=== PATIENT | female | born 1975 | race Caucasian/White ===

== ENCOUNTER 2019-04-26 22:40 | Outpatient (REF) | payer OTHER, SELFPAY ==
[2019-04-26 23:08] LABS: Anion Gap 12.6 mmol/L (3-11); BUN 12 mg/dL (7-18); CO2 26.4 mmol/L (21.0-32.0); CREATININE 0.68 mg/dL (0.55-1.02); Calcium 9.3 mg/dL (8.5-10.1); Chloride 104 mmol/L (98-107); Ferritin 69 ng/mL (8-388); Glucose 86 mg/dL (70-100); Magnesium 2.1 mg/dL (1.8-2.4); Potassium 4.4 mmol/L (3.5-5.1); Sodium 143 mmol/L (136-145); TSH (W/Ref FT4) 0.37 uIU/mL (0.36-3.74)
[2019-04-26 23:31] LABS: Creatine Kinase 69 U/L (26-192)
[2019-04-27 05:00] LABS: Vitamin D 25 Total 13.4 ng/ml (30-100)
[2019-04-28 11:52] LABS: Vitamin B12 425 pg/mL (193-986)
== END 2019-04-26 23:00 ==
LOC: NCHCN 22:40
PROVIDERS: PCP Family Medicine; Visit Provider Physician Assistant Medical
DX: R20.0 Anesthesia of skin (principal); E55.9 Vitamin D deficiency, unspecified; R20.2 Paresthesia of skin
CPT/HCPCS: 80048; 82306; 82550; 82607; 82728; 83735; 84443

== ENCOUNTER 2019-05-08 10:45 | Outpatient (CLI) | payer OTHER, SELFPAY ==
--- NOTE | 2019-05-08 15:19 | DI.RAD_ITS ---
EXAM: XR LUMBAR SPINE COMPLETE INDICATION: PARESTHESIA R20.2. COMPARISON: No exams were available for comparison TECHNIQUE: 2D digital imaging was performed. FINDINGS: There are 5 lumbar type vertebral bodies. There is normal alignment. There is no evidence of spondy lolysis or spondylolisthesis. The vertebral bodies, disc spaces, and posterior elements are all well maintained. No acute fracture or subluxation is present. IMPRESSION: No acute abnormality.
== END 2019-05-08 11:05 ==
PROVIDERS: PCP Family Medicine; Visit Provider Physician Assistant Medical
DX: R20.2 Paresthesia of skin (principal)
CPT/HCPCS: 72110

== ENCOUNTER 2019-10-08 09:30 | Emergency (ER) | payer OTHER, SELFPAY ==
[2019-10-08 09:41] VITALS: BP 129/88; PULSE 82; TEMP 36.8; O2SAT 98
[2019-10-08 09:55] LABS: Bilirubin Negative (Negative); Blood Moderate (Negative); Clarity Clear (Clear); Glucose Negative (Negative); Ketones Negative (Negative); Leukocyte Esterase Negative (Negative); Nitrite Negative (Negative); Urobilinogen 0.2 EU/dL (Up TO 0.2); pH 5.5 (5-8)
[2019-10-08 09:59] LABS: Bacteria Negative HPF (Negative); C & S Indicated? No; Casts Negative LPF (Negative); Crystals Negative HPF (Negative); Epithelial Cells Many HPF (Negative); Mucus Negative (Negative); WBC 0-2 HPF (0-5)
--- NOTE | 2019-10-08 10:00 | DI.CT_ITS ---
EXAM: CT ABDOMEN AND PELVIS W CLINICAL HISTORY: RLQ - MIDLINE PAIN. ? CALCULUS VS APPENDICITIS. TECHNIQUE: Post IV contrast. Without oral contrast. COMPARISON: No exams were available for comparison FINDINGS: The heart size is normal. The lung bases are clear. The liver shows multiple low-density lesions cons istent with cysts. The spleen, pancreas, kidneys, adrenals and gallbladder are unremarkable. There is no bowel dilatation or inflammatory change. Appendix is not identified. No right lower quadrant infl ammatory changes are seen. The colon is unremarkable. The bladder, uterus and ovaries are within norm al limits. The aorta is normal in diameter. No significant bony abnormalities are seen. IMPRESSION: No acute abnormality.
--- NOTE | 2019-10-08 10:01 | ED.GENADUL_ITS ---
Discharge Plan Disposition Patient Disposition: HOME Condition: Improving Discharge Details Chief Complaint: FlankPain Clinical Impression: Loin pain hematuria syndrome Primary Care Provider: Erica Torres V ED Provider: Vasyl John Home Meds and New Rx's Prescriptions: New hydrocodone-acetaminophen [Waldron] 5-325 mg tablet 1 tab PO BID PRN (Reason: pain) Qty: 4 RF: 0 Continued multivitamin Capsule 1 cap PO DAILY RF: 0 acetaminophen [Tylenol Extra Strength] 500 mg tablet 500 mg PO Q6H PRN PRNRF: 0 pregabalin [Lyrica] 50 mg Capsule 50 mg PO QHS RF: 0 Chantix 1 mg Tablet 1 mg PO BID RF: 0 Discharge Instructions Instructions: Hematuria (ED) Additional Instructions: May use ibuprofen 600 mg every 6-8 hours as needed for pain. This medication is best tolerated when taken with food. May use the provided Waldron for severe/breakthrough pain. Do not take additional Tylenol when taking this medication. We will ask care management to arrange a follow-up for you in urology clinic. The office number is [phone]. Return if you develop a fever, vomiting, abdominal bloating, inability to defecate, or any other acute concerns. Medical Decision Making 44-year-old female presents with 2-1/2 days of initially colicky, now constant right lower quadrant pain that radiates to her back. She was seen in primary care clinic and states that hematuria was noted at that time and after abdominal exam her discomfort seemed to worsen over the next day. She has not had a fever. She is tender in the right lower quadrant on exam. Differential diagnosis includes renal colic, appendicitis, colitis, cystitis. IV access established, patient given analgesia, fluid bolus, referred for laboratory testing, urinalysis, CT imaging enhanced with IV contrast given the aforementioned differential diagnosis considerations. The CT scan is read by negative per on-call radiologist, Dr. Oskar Harmon. I do question of mild right-sided ureteral dilatation and given the hematuria and location of the pain, I do feel this is likely renal colic. I will ask care management to arrange an outpatient follow-up in urology clinic. We will have the patient strain her urine. She will be given a small number of narcotic analgesics for breakthrough pain. I discussed with her that the CT scan was inconclusive. The patient and her understand return precautions for reevaluation. She is stable and improving. HPI General Mode of arrival: ambulatory . Date/Time Provider Initiated Documentation: 10/08/19 09:37 . Limitations to Documentation: no limitations . Information obtained by: patient . History of Present Illness 44 year old F presents to the emergency department with the chief complaint of Right lower quadrant pain, initially colicky, now constant, described as moderate, Quality is described as dull and constant, and is localized to the abdomen and right. Patient reports radiation to back. Patient started experiencing this hour(s) and it has been constant. No relieving factors improve symptom(s), Patient notes denies chest pain, fever/chills and nausea/vomiting. Patient did receive the following treatments prior to arrival, none Related Data Home Medications Medication Instructions Recorded Confirmed acetaminophen 500 mg tablet 500 mg PO Q6H PRN PRN tab 05/11/19 10/08/19 multivitamin 1 cap PO DAILY 05/11/19 10/08/19 Chantix 1 mg PO BID 10/08/19 10/08/19 hydrocodone-acetaminophen [Waldron] 1 tab PO BID PRN #4 tab 10/08/19 pregabalin [Lyrica] 50 mg PO QHS 10/08/19 10/08/19 Previous Rx's Medication Instructions Recorded hydrocodone-acetaminophen [Waldron] 1 tab PO BID PRN #4 tab 10/08/19 Allergies Allergy/AdvReac Type Severity Reaction Status Date / Time No Known Allergies Allergy Unverified 10/08/19 09:45 General Stated Complaint: FlankPain KELSI: 3 Review of Systems Narrative: No fever. States that she noticed the pain after being seen at primary care physician's office on . She states they noted hematuria at that time. No fever, vomiting, change to stool. 8 systems reviewed and otherwise negative [facility] Medical History Abnormal Pap smear of cervix (Acute) Back pain (Acute) Dental caries (Acute) Dental infection (Acute) Dyshidrotic eczema (Acute) Family history of colon cancer (Acute) Insomnia (Acute) Knee pain (Acute) Shoulder pain (Acute) Smoker (Acute) Vitamin D deficiency (Acute) Family History Mother Diabetes Thyroid disease Sister Seronegative rheumatoid arthritis Sister Seropositive rheumatoid arthritis Brother Colon cancer Niece Thyroid disease Social History Smoking/Tobacco Use Status: Current every day Tobacco Type: cigarettes Alcohol Intake: never Drug use: Never Substance use type: does not use Household members: spouse Housing: house Number of Children: 3 current occupation: [employer] What is your relationship status?: Panel score (0-1 are the most socially isolated patients): 1 Seatbelt use: always Do you feel safe at home: Yes Do you feel safe in your relationship?: Yes Exam Narrative Exam Narrative: GEN: awake, alert, oriented 3. Pleasant, well groomed, interactive. HEAD: Normocephalic, atraumatic ENT: Mucous membranes moist, oropharynx unremarkable, External ear exam unremarkable EYES: PERRL, EOMI NECK: Full ROM, no SHAKIR, no menigismus CHEST/RESP: Nontender, clear to auscultation bilateral, no wheeze/rhonchi/rales CARDIOVASCULAR: RRR, no murmur, rub roxann. 2+ Rad pulse bilateral ABDOMEN: Soft, tender in right lower quadrant and suprapubic regions, no mass. +Bowel sounds EXT: Full ROM, no edema, no rash Neuro: Grossly normal neurologic exam, conversant, interactive. Psych: Speech fluent, thoughts congruent, affect normal Course Vital Signs Vital signs: Vital Signs Temperature 36.8 C 10/08/19 09:41 Pulse 82 10/08/19 09:41 Blood Pressure 129/88 10/08/19 09:41 Pulse Oximetry 98 10/08/19 09:41 Temperature 36.8 C 10/08/19 09:41 Temperature Source Temporal Artery Scan 10/08/19 09:41 Pulse 82 10/08/19 09:41 Respiratory Effort Non-Labored 10/08/19 09:43 Blood Pressure 129/88 10/08/19 09:41 Blood Pressure Position Standing 10/08/19 09:41 Pulse Oximetry 98 10/08/19 09:41 Oxygen Delivery Method Room Air 10/08/19 09:41 Oxygen Flow Rate 0 10/08/19 09:41 Pain Level 8 10/08/19 09:43 Lab/Test Results Lab/Test Results: Laboratory Tests Range/Units 10/08/19 09:50 Urine Color (Yellow) Yellow Urine Clarity (Clear) Clear Urine pH (5-8) 5.5 Ur Specific [place] (1.005-1.025) 1.020 Urine Protein (Negative) mg/dL Negative Urine Ketones (Negative) mg/dL Negative Urine Blood (Negative) Moderate H Urine Nitrite (Negative) Negative Urine Bilirubin (Negative) Negative Urine Urobilinogen (Up TO 0.2) EU/dL 0.2 Ur Leukocyte Esterase (Negative) Negative Urine RBC (0-2) HPF 10-20 H Urine WBC (0-5) HPF 0-2 Ur Epithelial Cells (Negative) HPF Many Urine Crystals (Negative) HPF Negative Urine Bacteria (Negative) HPF Negative Urine Casts (Negative) LPF Negative Urine Mucus (Negative) Negative Ur Culture Indicated? No Urine Glucose (Negative) mg/dL Negative
[2019-10-08 10:08] LABS: Abs Immature Grans 0.01 k/cumm (0.0-0.09); Absolute Basophil Count 0.02 k/cumm (0.0-0.2); Absolute Eosinophil Count 0.11 k/cumm (0.0-0.7); Absolute Lymphocyte Count 2.56 k/cumm (1.2-3.4); Absolute Monocyte Count 0.64 k/cumm (0.11-0.7); Absolute Neutrophil Count 6.94 k/cumm (1.2-6.7); Basophils % 0.2; Eosinophils % 1.1; HCT 39.9 % (36.0-46.0); HGB 14.4 g/dL (12.0-15.5); Immature Grans % 0.1 %; Lymphocytes % 24.9; Mean Corp. HGB Concentration 36.1 g/dL (32.0-36.0); Mean Corpuscular Hemoglobin 31.7 pg (27.0-33.0); Mean Corpuscular Volume 87.9 fL (80-95); Mean Platelet Volume 8.9 fL (8.0-11.0); Monocytes % 6.2; Neutrophils % 67.5; Platelet Count 376 x1000/uL (130-400); RBC 4.54 m/cumm (4.00-5.20); RBC Distribution Width 11.7 % (11.7-14.6); White Blood Cell Count 10.28 k/cumm (4.4-10.8)
[2019-10-08] MEDS: Ketorolac 30 MG/ML VIAL IVP (10:10)
[2019-10-08] MEDS: Normal Saline 1,000 ML 1000 ML IV (10:10)
[2019-10-08] MEDS: Normal Saline Flush 10 ML SYR IVP (10:11)
[2019-10-08 10:26] LABS: ALT 22 U/L (14-59); AST 10 U/L (15-37); Albumin 4.2 g/dL (3.4-5.0); Alkaline Phosphatase 43 U/L (46-116); Anion Gap 10.9 mmol/L (3-11); BUN 10 mg/dL (7-18); Bilirubin, Total 0.7 mg/dL (0.2-1.0); CO2 24.1 mmol/L (21.0-32.0); CREATININE 0.67 mg/dL (0.55-1.02); Calcium 8.5 mg/dL (8.5-10.1); Chloride 104 mmol/L (98-107); Glucose 93 mg/dL (74-106); Potassium 3.3 mmol/L (3.5-5.1); Sodium 139 mmol/L (136-145); Total Protein 7.1 g/dL (6.4-8.2)
[2019-10-08] MEDS: HYDROmorphone 2 MG/ML VIAL 0.5 MG IVP ×2 (10:58→12:22)
[2019-10-08] MEDS: Omnipaque 350 MG/ML 100 ML BTL IJ (11:23)
--- NOTE | 2019-10-08 12:35 | DI.VRAD_ITS ---
PROCEDURE INFORMATION: Exam: CT Abdomen And Pelvis With Contrast Exam date and time: 10/08/2019 11:16 AM Age: 44 years old Clinical indication: Abdominal pain; Patient HX: Rlq -midline pain, ? calculi vs. Appendicitis. Pain worse when bending /sitting TECHNIQUE: Imaging protocol: Computed tomography of the abdomen and pelvis with intravenous contrast. COMPARISON: No relevant prior studies available. FINDINGS: Liver: Multiple small low-attenuation lesions in the liver. Largest 1 is consistent with cyst. Some are too small to characterize. Gallbladder and bile ducts: Normal. No calcified stones. No ductal dilation. Pancreas: Normal. No ductal dilation. Spleen: Normal. No splenomegaly. Adrenals: Normal. No mass. Kidneys and ureters: Normal. No hydronephrosis. No renal calculus. No ureteral calculus Stomach and bowel: Unremarkable. No obstruction. No mucosal thickening. Appendix: No evidence of appendicitis. Intraperitoneal space: Unremarkable. No free air. No significant fluid collection. Vasculature: Unremarkable. No abdominal aortic aneurysm. Lymph nodes: Unremarkable. No enlarged lymph nodes. Bladder: Unremarkable as visualized. Reproductive: Unremarkable as visualized. Bones/joints: Unremarkable. No acute fracture. Soft tissues: Unremarkable. IMPRESSION: No acute process Dictated and Authenticated by: Oskar Harmon MD. Ordering:CAM Fallon MD
--- NOTE | 2019-10-08 13:00 | NUR.NOTE ---
[facility]erral [facility], Dr. Cummings.Nursing Note:
== END 2019-10-08 13:11 | disposition home or self-care (01) ==
PROVIDERS: Emergency Provider Emergency Medicine; PCP Family Medicine
DX: R10.31 Right lower quadrant pain (principal); N39.8 Other specified disorders of urinary system
CPT/HCPCS: 36415; 80053; 81025; 96361; 96374; 96375; 96376; 99285; 74177; 81003; 81015; 85025; 99284; J1885; J3490

== ENCOUNTER 2019-10-10 02:10 | Outpatient (CLI) | payer OTHER, SELFPAY ==
--- NOTE | 2019-10-10 | DI.US_ITS ---
EXAM: US RENAL PELVIC TRANSVAGINAL CLINICAL HISTORY: HEMATURIA, R31.9, ABD PAIN, R10.9, URINARY FREQUENCY, R35.0 TECHNIQUE: Ultrasound performed using standard protocol. COMPARISON: CT ABDOMEN PELVIS W from 10/08/2019 FINDINGS: Pelvic ultrasound: Trans abdominal and transvaginal exams were performed. A small fibroid measurin g 1 cm in diameter is noted in the mid uterus. It may be submucosal or be in the adjacent myometrium . There are a few sub endometrial cysts. The uterus measures 9.1 by 3.6 by 5.3 cm. The endometrial stripe measures 9 millimeters in thickness. The ovaries are normal in size and appearance. No cyst s or masses are visible. There is no free fluid. Renal ultrasound: The prevoid bladder volume measures 457 cc. Both ureteral jets were identified. There is a postvoid residual of 27 cc. No bladder mass, wall thickening or calculi are seen. The ri ght kidney measures 11.0 cm in length. The left measures 11.3 cm in length. There is a question of minimal right hydronephrosis which persisted postvoid. IMPRESSION: 1. Question of mild right hydronephrosis. 2. 1 cm. myometrial versus submucosal fibroid. DATA REPOSITORY:
== END 2019-10-10 02:30 ==
PROVIDERS: PCP Family Medicine; Visit Provider Physician Assistant Medical
DX: R31.9 Hematuria, unspecified (principal); R10.9 Unspecified abdominal pain; R35.0 Frequency of micturition; D25.9 Leiomyoma of uterus, unspecified; N13.30 Unspecified hydronephrosis
CPT/HCPCS: 76770; 76830; 76856

== ENCOUNTER 2019-11-29 14:31 | Outpatient (REF) | payer OTHER, SELFPAY ==
[2019-11-29 21:09] LABS: Bacteria Negative HPF (Negative); Crystals Negative HPF (Negative); Epithelial Cells Moderate HPF (Negative); RBC Negative HPF (0-2); WBC 0-2 HPF (0-5)
[2019-11-29 21:10] LABS: C & S Indicated? No; Mucus Trace (Negative)
== END 2019-11-29 14:51 ==
LOC: NCHCN 14:31
PROVIDERS: PCP Family Medicine; Visit Provider Nurse Practitioner Family
DX: R10.9 Unspecified abdominal pain (principal)
CPT/HCPCS: 81015

== ENCOUNTER 2019-12-01 03:24 | Outpatient (CLI) | payer OTHER, SELFPAY ==
--- NOTE | 2019-12-01 | DI.US_ITS ---
EXAM: US RENAL CLINICAL HISTORY: RLQ AND FLANK PAIN, F/U RT HYDRONEPHROSIS, ? NEPHROLITHIASIS OR HYDRONEPHRO. TECHNIQUE: Hyde scale, color and spectral Doppler were used. COMPARISON: CT ABDOMEN PELVIS W from 10/08/2019 US RENAL PELVIC TRANSVAGINAL from 10/10/2019 FINDINGS: Renal size in cm: Right: 10.3 left: 9.7 Echogenicity: Normal Cyst or mass: There is a question of cysts at the upper and mid poles of the right kidney versus mild dilatation of the intrarenal collecting system. The renal pelvis is not dilated. Nephrolithiasis: No Bladder:Normal. Ureteral jets were visualized. Prevoid vol:195 Postvoid vol:14 IMPRESSION: Mild dilatation of the right intrarenal collecting system versus small para parapelvic cysts. The f indings appear similar to the previous exams. DATA REPOSITORY:
== END 2019-12-01 03:44 ==
PROVIDERS: PCP Family Medicine; Visit Provider Nurse Practitioner Family
DX: R10.31 Right lower quadrant pain (principal); N28.1 Cyst of kidney, acquired; N28.9 Disorder of kidney and ureter, unspecified
CPT/HCPCS: 76770

== ENCOUNTER 2021-02-04 11:41 | Outpatient (REF) | payer MEDICAID, SELFPAY ==
--- NOTE | 2021-02-04 10:15 | PAPFT_PTH ---
PATIENT: Irena Evans LOC: [facility] U#:[id number] AGE/SX: 45/F ROOM: RE02/04/[address]: Erica Torres V : 1975 BED: DIS: 02/04/2021 SPEC #: [id number] RECD: 02/05/21 12:47 STATUS: PAMELA REJermain #: [id number] DAYA: 02/04/21 10:[address]: Erica Torres V DEPT: [facility] Cytology RECD BY: Ina Elizabeth Tissues: 1 - CX/ENDOCX FOR PAP SMEARS Procedures: PAP THIN PREP/UVM Screening HPV DNA PROBE Comments: [id number]
[2021-02-04 20:01] LABS: HCT 42.9 % (36.0-46.0); HGB 14.5 g/dL (11.2-15.7); MCH 31.5 pg (27.0-33.0); MCHC 33.8 % (32.0-36.0); MCV 93.1 fL (80-95); MPV 8.9 fL (8.0-11.0); Platelet Count 432 10^3/uL (130-400); RBC 4.61 10^6/uL (3.93-5.22); RDW 11.4 % (11.7-14.6); RDW-SD 38.6 fL; WBC 9.85 10^3/uL (4.4-10.8)
[2021-02-04 20:26] LABS: ESR 16 mm/hr (0-20)
[2021-02-04 20:27] LABS: ALT 24 U/L (14-59); AST 16 U/L (15-37); Albumin 4.3 g/dL (3.4-5.0); Alkaline Phosphatase 62 U/L (46-116); Anion Gap 13.6 mmol/L (3-11); BUN 8 mg/dL (7-18); Bilirubin, Total 0.8 mg/dL (0.2-1.0); CO2 23.4 mmol/L (21.0-32.0); CREATININE 0.8 mg/dL (0.55-1.02); Chloride 103 mmol/L (98-107); Glucose 83 mg/dL (74-106); Potassium 4.1 mmol/L (3.5-5.1); Sodium 140 mmol/L (136-145); TSH (W/Ref FT4) 0.55 uIU/mL (0.36-3.74); Total Protein 7.3 g/dL (6.4-8.2); Vitamin B12 392 pg/mL (193-986)
[2021-02-04 20:42] LABS: Hemoglobin A1C 5.3 % (<5.7)
[2021-02-04 21:12] LABS: C-Reactive Protein 0.31 mg/dL (0.0-0.3)
[2021-02-05 16:19] LABS: Rheumatoid Factor <8.6 IU/mL (<12.0)
[2021-02-06 10:40] LABS: Hepatitis C Ab w Rflx HCV PCR Negative (Negative)
== END 2021-02-04 11:42 | disposition home or self-care (01) ==
LOC: NCHCN 11:41
PROVIDERS: PCP Family Medicine; Visit Provider Family Medicine
DX: Z00.00 Encounter for general adult medical examination without abnormal findings (principal); Z01.419 Encounter for gynecological examination (general) (routine) without abnormal findings; E53.8 Deficiency of other specified B group vitamins; G62.9 Polyneuropathy, unspecified; Z12.4 Encounter for screening for malignant neoplasm of cervix; Z11.51 Encounter for screening for human papillomavirus (HPV)
CPT/HCPCS: 80053; 80186; 85027; 85652; 86803; 88142; 82607; 83036; 83735; 84443; 86140; 86431; 87624

== ENCOUNTER 2021-09-21 15:09 | Emergency (ER) | payer MEDICAID, SELFPAY ==
[2021-09-21 15:22] VITALS: BP 144/97; PULSE 103; RESP 16; TEMP 36.3; O2SAT 99
--- NOTE | 2021-09-21 15:30 | DI.RAD_ITS ---
Exam(s) XR SHOULDER LT COMPLETE 2+V EXAM: XR SHOULDER LT COMPLETE 2+V CLINICAL HISTORY: Anterior shoulder pain. TECHNIQUE: 2D digital imaging was performed. COMPARISON: CR RIGHT SHOULDER COMPLETE from 07/26/2014 FINDINGS: No evidence of fracture nor dislocation or abnormal soft tissue calcifications. No degenerative dela cruz ges evident in the glenohumeral and AC joints. Bone density normal. No osseous lesions. IMPRESSION: No significant findings. DATA REPOSITORY: RADIATION DOSE DELIVERED:
--- NOTE | 2021-09-21 15:45 | ED.GENADUL_ITS ---
Discharge Plan Disposition Patient Disposition: HOME Condition: Stable Discharge Details Clinical Impression: Sprain of shoulder, left Primary Care Provider: Erica Torres V ED Provider: Rosemary Harrison Home Meds and New Rx's Prescriptions: Continued multivitamin Capsule 1 cap PO DAILY 0RF acetaminophen [Tylenol Extra Strength] 500 mg tablet 500 mg PO Q6H PRN PRN0RF pregabalin [Lyrica] 50 mg Capsule 50 mg PO BID 0RF cyclobenzaprine 10 mg tablet 10 mg PO BID PRN0RF Label Comments: TAKE 1/2 TO 1 TABLET BY MOUTH TWICE DAILY NEEDED ibuprofen 800 mg tablet 800 mg PO BID 0RF Label Comments: TAKE 1 TABLET BY MOUTH TWICE DAILY WITH FOOD NEEDED Discharge Instructions Instructions: Shoulder Sprain (ED) Additional Instructions: Use the sling as needed while up and about. Rest, ice, compression, elevation. May place ice while sitting or lying down. Please take Tylenol or Ibuprofen with food every 4-6 hours as needed for pain and swelling. At this time the x-ray shows no dislocation or bony abnormality however there is a chance you injured your rotator cuff or tendon or ligament inside the shoulder. Please follow-up with orthopedic within the next 1 to 2-week if continued pain for further evaluation and treatment. Stand Alone Forms: Work Release Referrals: Raj Deng MD [ [facility] STAFF PHYSICIAN] - 2 weeks Discharge Data Discharge Date/Time-TO BE ENTERED AT DEPARTURE: 09/21/21 17:06 Medical Decision Making <Leodan Beltran NP - Last Filed: 09/24/21 11:13> Patient presenting to the emergency department for chief complaint of left shoulder injury. She states for the past week she has noted some popping and clicking in her shoulder but then today approximately 10 minutes prior to arrival she was lifting dinner trays and felt a ripping and tearing in the anterior aspect of her left shoulder. Patient denies any other injury or trauma. Physical exam shows that patient is in acute pain holding left anterior shoulder with resistance to range of motion. Was able to perform most range of motion but patient is extremely hesitant due to pain level. Patient has point tenderness to the anterior aspect of the left shoulder otherwise sensation, movement and pulses are intact distal to injury. Plan to give Toradol, radiological imaging of the left shoulder, and sling. I expect patient will need follow-up with orthopedics for concern of ligamentous injury that would be better evaluated with MRI. <Rosemary Harrison - Last Filed: 09/21/21 19:30> Patient presenting to the emergency department for chief complaint of left shoulder injury. She states for the past week she has noted some popping and clicking in her shoulder but then today approximately 10 minutes prior to arrival she was lifting dinner trays and felt a ripping and tearing in the anterior aspect of her left shoulder. Patient denies any other injury or trauma. Physical exam shows that patient is in acute pain holding left anterior shoulder with resistance to range of motion. Was able to perform most range of motion but patient is extremely hesitant due to pain level. Patient has point tenderness to the anterior aspect of the left shoulder otherwise sensation, m ovement and pulses are intact distal to injury. Plan to give Toradol, radiological imaging of the left shoulder, and sling. I expect patient will need follow-up with orthopedics for concern of ligamentous injury that would be better evaluated with MRI. Care assumed from provider (Ovidio Beltran NP Please see their initial HPI, PE, and documentation. Discussed patient details and case and pending workup and disposition. Patient is hemodynamically stable, and alert and oriented. At the time of signout we are awaiting a shoulder x-ray. Imaging protocol: XR Left shoulder. Views: 2 or more views. COMPARISON: No relevant prior studies available. FINDINGS: Bones/joints: Normal. Soft tissues: Normal. IMPRESSION: No acute findings. Thank you for allowing us to participate in the care of your patient. Dictated and Authenticated by: Roland Hanley MD [facility] Narrative Medical decision making narrative: Care assumed from provider (Ovidio Beltran NP) Please see their initial HPI, PE, and documentation. Discussed patient details and case and pending workup and disposition. Patient is hemodynamically stable, and alert and oriented. At this time we are awaiting a shoulder x-ray. vRad report shows no acute abnormality. Discussed results with patient who verbalized understanding. I did discuss follow-up with orthopedics rest ice compression elevation and strict return instructions she verbalizes understanding. This text was generated using SDIation system, please disregard any oddities of phrase or misspellings. Differential Diagnosis Differential diagnosis: Likely dislocation of shoulder HPI <Leodan Beltran NP - Last Filed: 09/24/21 11:13> General Mode of arrival: ambulatory . Date/Time Provider Initiated Documentation: 09/21/21 15:25 . Limitations to Documentation: no limitations . Information obtained by: patient . History of Present Illness 46 year old F presents to the emergency department with the chief complaint of Left shoulder injury, described as severe, with intensity rated at 9. Quality is described as aching and sharp, and is localized to the left and upper extremity. Patient distal. Patient started experiencing this minute(s) (20) and it has been constant. improves with Immobilization improves symptom(s), and Rest improves symptom(s), Movement worsens symptoms . Patient notes no other symptoms.. Patient did receive the following treatments prior to arrival, none Related Data Home Medications Medication Instructions Recorded Confirmed acetaminophen 500 mg tablet 500 mg PO Q6H PRN PRN tab 05/11/19 09/21/21 (Tylenol Extra Strength) multivitamin 1 cap PO DAILY 05/11/19 09/21/21 pregabalin 50 mg capsule (Lyrica) 50 mg PO BID 10/08/19 09/21/21 cyclobenzaprine 10 mg tablet 10 mg PO BID PRN 09/21/21 09/21/21 ibuprofen 800 mg tablet 800 mg PO BID 09/21/21 09/21/21 Allergies Allergy/AdvReac Type Severity Reaction Status Date / Time No Known Allergies Allergy Unverified 09/21/21 15:27 General Stated Complaint: Orthopedic KELSI: 3 Review of Systems <Leodan Beltran NP - Last Filed: 09/24/21 11:13> Cardiovascular Cardiovascular: Denies chest pain, Denies syncope and Denies dyspnea Respiratory Respiratory: Denies dyspnea Musculoskeletal Musculoskeletal: Reports as per HPI, Denies numbness and Denies tingling Integumentary/Breasts Skin/Breast: Denies rash, Denies sores and Denies wounds Neurologic Neurologic: Denies syncope, Denies numbness and Denies tingling [facility] <Leodan Beltran NP - Last Filed: 09/24/21 11:13> All Active Problems (Updated 09/21/21 @ 16:50 by Rosemary Harrison) Sprain of shoulder, left (Acute) Microscopic hematuria (Acute) OAB (overactive bladder) (Acute) Paresthesia of arm (Acute) Bilateral leg paresthesia (Acute) Medical History (Updated 09/21/21 @ 16:50 by Rosemary Harrison) Abnormal Pap smear of cervix Back pain Dental caries Dental infection Dyshidrotic eczema Family history of colon cancer Insomnia Knee pain Shoulder pain Smoker Vitamin D deficiency Surgical History H/O tubal ligation Family History Mother Diabetes Thyroid disease Sister Seronegative rheumatoid arthritis Sister Seropositive rheumatoid arthritis Brother Colon cancer Niece Thyroid disease Social History Smoking/Tobacco Use Status: Current every day Tobacco Type: cigarettes Smoking risk assessment performed?: Yes Alcohol Intake: never Drug use: Never Substance use type: does not use Household members: spouse Housing: house Number of Children: 3 current occupation: [employer] What is your relationship status?: Panel score (0-1 are the most socially isolated patients): 1 Seatbelt use: always Do you feel safe at home: Yes Do you feel safe in your relationship?: Yes Exam <Leodan Beltran NP - Last Filed: 09/24/21 11:13> Const General: cooperative and not ill appearing Orientation: alert, awake and oriented x3 Resp Effort & Inspection: normal respiratory effort, able to speak in complete sentences and no respiratory distress Cardio Rate: regular rate Rhythm: regular rhythm Pulses: radial pulses present Skin General skin exam: no rashes or lesions noted Neuro General: patient alert, patient awake, patient oriented x3 and moves all extremities Sensory Exam: no sensory deficits noted Extrem General: normal exam except as noted Left upper extremity: shoulder/upper arm Details: tenderness Location: of the proximal humerus and over the subacromial bursa, axillary nerve sensory function normal and abnormal ROM Details: held in an abnormal fashion Details: in ADduction and in internal rotation, pain with active ROM and pain with passive ROM; Negative for no ecchymosis, no crepitus and no deformity Course <Leodan Beltran NP - Last Filed: 09/24/21 11:13> Vital Signs Vital signs: Vital Signs Temperature 36.3 C L 09/21/21 15:22 Pulse 103 H 09/21/21 15:22 Respiratory Rate 16 09/21/21 15:22 Blood Pressure 144/97 H 09/21/21 15:22 Pulse Oximetry 99 09/21/21 15:22 Temperature 36.3 C L 09/21/21 15:22 Temperature Source Temporal Artery Scan 09/21/21 15:22 Pulse 103 H 09/21/21 15:22 Respiratory Rate 16 09/21/21 15:22 Respiratory Effort Non-Labored 09/21/21 15:25 Blood Pressure 144/97 H 09/21/21 15:22 Blood Pressure Position Sitting 09/21/21 15:22 Pulse Oximetry 99 09/21/21 15:22 Oxygen Delivery Method Room Air 09/21/21 15:22 Oxygen Flow Rate 0 09/21/21 15:22 Pain Level 7 09/21/21 15:22 Sign Out <Leodan Beltran NP - Last Filed: 09/24/21 11:13> Sign Out Data: Sign Out Comment: Patient signed out pending radiological imaging of left shoulder with anticipated recommended follow-up to orthopedics for work comp injury. Last updated by Leodan Beltran NP at 09/21/21 15:57
[2021-09-21] MEDS: Ketorolac 30 MG/ML VIAL IM (15:59)
--- NOTE | 2021-09-21 16:35 | DI.VRAD_ITS ---
PROCEDURE INFORMATION: Exam: XR Left Shoulder Exam date and time: 09/21/2021 3:40 PM Age: 46 years old Clinical indication: Other: Anterior shoulder pain; Patient HX: Patient described lifting object and feeling a tearing sensation TECHNIQUE: Imaging protocol: XR Left shoulder. Views: 2 or more views. COMPARISON: No relevant prior studies available. FINDINGS: Bones/joints: Normal. Soft tissues: Normal. IMPRESSION: No acute findings. Dictated and Authenticated by: Roland Hanley MD. Ordering:MOHAN Alcocer MD
[2021-09-21 16:54] VITALS: BP 132/92; TEMP 36.4; O2SAT 100
== END 2021-09-21 17:06 | disposition home or self-care (01) ==
PROVIDERS: Emergency Provider Registered Nurse Emergency; PCP Family Medicine
DX: S43.492A Other sprain of left shoulder joint, initial encounter (principal); X50.0XXA Overexertion from strenuous movement or load, initial encounter; Y99.0 Civilian activity done for income or pay
CPT/HCPCS: 96372; 99284; 73030; 99283; J1885

== ENCOUNTER 2022-02-20 11:19 | Outpatient (REF) | payer MEDICAID, SELFPAY ==
[2022-02-20 17:37] LABS: Hemoglobin A1C 4.9 % (<5.7)
[2022-02-20 18:48] LABS: Calculated LDL 235 mg/dL (<100); Cholesterol 313 mg/dL (<200); HDL Cholesterol 38 mg/dL (40-60); Triglyceride 204 mg/dL (<150)
[2022-02-23 13:46] LABS: Albumin 66.3 % (55.8-66.1); Albumin g/dL 4.8 g/dL (3.6-5.2); Total Protein 7.2 g/dL (6.3-8.2)
[2022-02-23 15:44] LABS: ANA Interpretation Negative (Negative)
== END 2022-02-20 11:20 | disposition home or self-care (01) ==
LOC: NCHCN 11:19
PROVIDERS: PCP Family Medicine; Visit Provider Family Medicine
DX: Z00.00 Encounter for general adult medical examination without abnormal findings (principal); G62.9 Polyneuropathy, unspecified
CPT/HCPCS: 80061; 83036; 84165; 86038

== ENCOUNTER 2022-08-20 15:30 | Outpatient (REF) | payer MEDICAID, SELFPAY ==
[2022-08-20 20:42] LABS: Calculated LDL 213 mg/dL (<100); Cholesterol 303 mg/dL (<200); HDL Cholesterol 41 mg/dL (40-60); Triglyceride 245 mg/dL (<150)
[2022-08-24 12:51] LABS: Albumin 66.8 % (55.8-66.1); Albumin g/dL 4.7 g/dL (3.6-5.2); Total Protein 7.1 g/dL (6.3-8.2)
== END 2022-08-20 15:31 | disposition home or self-care (01) ==
LOC: NCHCN 15:30
PROVIDERS: PCP Family Medicine; Visit Provider Family Medicine
DX: E78.5 Hyperlipidemia, unspecified (principal)
CPT/HCPCS: 80061; 84165

== ENCOUNTER 2022-12-02 11:41 | Outpatient (CLI) | payer MEDICAID, SELFPAY ==
[2022-12-02 11:41] LABS: ALT 23 U/L (14-59); AST 13 U/L (15-37); Calculated LDL 114 mg/dL (<100); Cholesterol 184 mg/dL (<200); HDL Cholesterol 38 mg/dL (40-60); Triglyceride 161 mg/dL (<150)
[2022-12-02 11:57] LABS: Creatine Kinase 85 U/L (26-192)
== END 2022-12-02 11:42 | disposition home or self-care (01) ==
LOC: LBO 11:41
PROVIDERS: PCP Family Medicine; Visit Provider Family Medicine
DX: Z00.00 Encounter for general adult medical examination without abnormal findings (principal); E78.5 Hyperlipidemia, unspecified; G62.9 Polyneuropathy, unspecified
CPT/HCPCS: 36415; 80061; 82550; 84450; 84460

== ENCOUNTER 2023-03-02 10:41 | Outpatient (CLI) | payer MEDICAID, SELFPAY ==
--- NOTE | 2023-03-02 14:14 | DI.RAD_ITS ---
Exam(s) XR HIP PELVIS ADULT BL EXAM: XR HIP PELVIS ADULT BL CLINICAL HISTORY: ATAXIC GAIT, R26.0; HIP ABNORMALITY AND GAIT ISSUES. TECHNIQUE: 2D digital imaging was performed. COMPARISON: No exams were available for comparison FINDINGS: 3 views No evidence of pelvic nor hip fractures. No obvious degenerative changes. Joints exhibit no signifi cant narrowing nor osteophytes. SI joints unremarkable. No osseous lesions. Subtle irregularity on the left side of the symphysis pubis is probably developmental. IMPRESSION: No significant radiograph findings in the hips. DATA REPOSITORY: RADIATION DOSE DELIVERED:
== END 2023-03-02 11:01 ==
LOC: DI 10:43
PROVIDERS: PCP Family Medicine; Visit Provider Family Medicine
DX: R26.0 Ataxic gait (principal)
CPT/HCPCS: 73521